=== PATIENT | female | born 1945 | race American Indian/Alaskan Native ===

== ENCOUNTER → 2018-06-02 | Outpatient (CLI) | payer MEDICARE | LOC: LAB 10:55 ==

== ENCOUNTER 2018-06-21 00:28 | Emergency (ER) | payer MEDICARE ==
[2018-06-21 00:39] VITALS: BMI 35.4
[2018-06-21] MEDS ORDERED: Albuterol-Ipratrop 3 mg / 0.5 (3 ml) UD IH STA (00:44)
--- NOTE | 2018-06-21 00:47 | ED PDOC ---
Arrival/HPI - General Time Seen by Provider: 06/21/18 00:37 Historian: Patient - History of Present Illness Narrative History of Present Illness (Text): 06/21/18 00:44 73 year old female, whose past medical history includes hypertension, diabetes, high cholesterol, and asthma, presents to the emergency department via EMS complaining of shortness of breath that began 4 hours ago. Patient reports symptoms is similar to her asthma. Patient was given 2 duonebs and 1 albuteral l treatment enroute to Emergency room. She reports relief after the treatments. Patient states she has been admitted in the past at another facility due to her asthma and notes that her current attack does not feel as bad as previous. She denies ever being intubated before. Patient denies any fever, chills, night sweats, chest pain, nausea, vomiting, diarrhea, urinary symptoms, back pain, neck pain, headache, dizziness, or any other complaints. PMD: Dr. Linn Time/Duration: Other (4 hours) Symptom Onset: Gradual Symptom Course: Unchanged Activities at Onset: Light Context: Home Past Medical History - Provider Review Nursing Documentation Reviewed: Yes - Cardiac Hx Cardiac Disorders: Yes Hx Hypertension: Yes Hx Pacemaker: No - Pulmonary Hx Respiratory Disorders: No - Neurological Hx Neurological Disorder: No - HEENT Hx HEENT Disorder: No - Renal Hx Renal Disorder: No - Endocrine/Metabolic Hx Endocrine Disorders: No - Hematological/Oncological Hx Blood Disorders: No - Integumentary Hx Dermatological Disorder: No - Musculoskeletal/Rheumatological Hx Musculoskeletal Disorders: No Hx Falls: No - Gastrointestinal Hx Gastrointestinal Disorders: Yes (HERNIORHAPPHY) - Genitourinary/Gynecological Hx Genitourinary Disorders: Yes (FREQUENCY,PARTIAL HYSTERECTOMY) - Psychiatric Hx Psychophysiologic Disorder: Yes Hx Depression: Yes Hx Emotional Abuse: No Hx Physical Abuse: No Hx Substance Use: No - Surgical History Hx Hysterectomy: Yes (PARTIAL) Hx Inguinal Hernia Repair: Yes - Anesthesia Hx Anesthesia Reactions: No Hx Malignant Hyperthermia: No - Suicidal Assessment Feels Threatened In Home Enviroment: No Family/Social History - Physician Review Nursing Documentation Reviewed: Yes Family/Social History: No Known Family HX Smoking Status: Never Smoked Hx Alcohol Use: No Hx Substance Use: No Hx Substance Use Treatment: No Allergies/Home Meds Allergies/Adverse Reactions: Allergies No Known Allergies Allergy (Verified 06/21/18 00:46) Home Medications: Home Meds Medication Instructions Recorded Confirmed Amlodipine/Valsartan [Exforge 5 1 tab PO DAILY 11/17/12 06/21/18 mg-160 mg] Aripiprazole [Abilify] 15 mg PO HS 11/17/12 06/21/18 Multivitamin 1 tab PO DAILY 11/17/12 06/21/18 Review of Systems - Physician Review All systems were reviewed & negative as marked: Yes - Review of Systems Constitutional: absent: Fevers, Night Sweats, Other (chills) Eyes: absent: Vision Changes ENT: absent: Hearing Changes Respiratory: SOB. absent: Sputum Cardiovascular: absent: Chest Pain Gastrointestinal: absent: Abdominal Pain, Stool Changes, Constipation, Diarrhea, Nausea, Vomiting, Hematochezia, Anorexia Genitourinary Female: absent: Dysuria, Frequency, Hematuria Musculoskeletal: absent: Arthralgias, Back Pain, Neck Pain Skin: absent: Rash Neurological: absent: Headache, Dizziness, Focal Weakness, Gait Changes Hemo/Lymphatic: absent: Adenopathy Psychiatric: absent: Anxiety Physical Exam Vital Signs Reviewed: Yes Temperature: Afebrile Blood Pressure: Normal Pulse: Regular Respiratory Rate: Normal Appearance: Positive for: Well-Appearing, Non-Toxic, Comfortable Pain Distress: None Mental Status: Positive for: Alert and Oriented X 3 - Systems Exam Head: Present: Atraumatic, Normocephalic Pupils: Present: PERRL Extroacular Muscles: Present: EOMI Conjunctiva: Present: Normal Ears: Present: Normal, NORMAL TM Mouth: Present: Moist Mucous Membranes Pharnyx: Present: Normal. No: ERYTHEMA, EXUDATE Nose (External): Present: Atraumatic Nose (Internal): Present: Normal Inspection, No Active Bleeding Neck: Present: Normal Range of Motion. No: Meningeal Signs, MIDLINE TENDERNESS Respiratory/Chest: Present: Wheezes (mild wheezing bilaterally). No: Respiratory Distress, Accessory Muscle Use, Rales, Retracting Cardiovascular: Present: Regular Rate and Rhythm, Normal S1, S2. No: Murmurs Abdomen: No: Tenderness, Distention, Peritoneal Signs Back: Present: Normal Inspection. No: CVA Tenderness, Midline Tenderness Upper Extremity: Present: Normal Inspection, NORMAL PULSES, Neurovascularly Intact, Capillary Refill < 2s. No: Cyanosis, Edema Lower Extremity: Present: Normal Inspection, NORMAL PULSES, Neurovascularly Intact, Capillary Refill < 2 s. No: Edema, CALF TENDERNESS Neurological: Present: GCS=15, CN II-XII Intact, Speech Normal Skin: Present: Warm, Dry, Normal Color. No: Rashes Psychiatric: Present: Alert, Oriented x 3, Normal Insight, Normal Concentration Medical Decision Making ED Course and Treatment: 06/21/18 00:45 Impression: 73 year old female presents complaining of shortness of breath that began 4 hours ago. She notes SOB feels exactly alike her previous asthma exacerbations. No fall or trauma. No chest pain. No leg swelling. No hx of blood clots or dvt. No venous stasis or hormone therapy. no fever, chills or night sweats. Differential Diagnosis included but are not limited to: Asthma Plan: -- EKG -- Labs -- Chest X-ray -- Duoneb, Solu-medrol -- Reassess and disposition Prior Visits: Notes and results from previous visits were reviewed. Progress Notes: EKG shows NSR at 84 BPM with no STEMI. Interpreted by me. 06/21/18 02:41 Pt in NAD, labs largely unremarkable: CMP slightly hemolyzed but largely unremarkable CXR unremarkable per my read Pt in NAD, s/p rx, lungs cta b/l and pt speaking in full sentences and ambulating well without issue. Clear for d/c home with return indications and f/u. Pt agreeable to plan. - Lab Interpretations I have reviewed the lab results: Yes - RAD Interpretation Insole Coverer: ED Physician - EKG Interpretation Interpreted by ED Physician: Yes Type: 12 lead EKG - Scribe Statement The provider has reviewed the documentation as recorded by the Consuelo Richardson Provider Scribe Attestation: All medical record entries made by the Consuelo were at my direction and personally dictated by me. I have reviewed the chart and agree that the record accurately reflects my personal performance of the history, physical exam, medical decision making, and the department course for this patient. I have also personally directed, reviewed, and agree with the discharge instructions and disposition. Disposition/Present on Arrival - Present on Arrival Any Indicators Present on Arrival: No History of DVT/PE: No History of Uncontrolled Diabetes: No Urinary Catheter: No History Surgical Site Infection Following: None - Disposition Have Diagnosis and Disposition been Completed?: Yes Diagnosis: Asthma exacerbation Disposition: HOME/ ROUTINE Disposition Time: 02:39 Patient Problems: Current Active Problems Problem Status Onset Asthma exacerbation Acute Condition: STABLE Discharge Instructions (ExitCare): Asthma, Adult (DC) Additional Instructions: JUSTINA ALAS, thank you for letting us take care of you today. Your provider was Rommel Funk and you were treated for RESPIRATORY DISTRESS. The emergency medical care you received today was directed at your acute symptoms. If you were prescribed any medication, please fill it and take as directed. It may take several days for your symptoms to resolve. Return to the Emergency Department if your symptoms worsen, do not improve, or if you have any other problems. Please contact your doctor or call one of the physicians/clinics you have been referred to that are listed on the Patient Visit Information form that is included in your discharge packet. Bring any paperwork you were given at dis charge with you along with any medications you are taking to your follow up visit. Our treatment cannot replace ongoing medical care by a primary care provider outside of the emergency department. Thank you for allowing the [facility] team to be part of your care today. If you had an X-Ray or CT scan: A Radiologist will review the ED reading if any change in treatment is needed we will contact you. If you had a blood, urine, or wound culture: It will take several days for the results, if any change in treatment is needed we will contact you. If you had an STI test: It will take 48 hours for the results. Please call after 1 week if you have not heard back. Prescriptions: Albuterol HFA [Ventolin HFA 90 mcg/actuation (8 g)] 1 puff IH Q4H PRN 90 Days #1 inhaler PRN Reason: Shortness Of Breath predniSONE [Prednisone] 40 mg PO DAILY 5 Days #10 tab Referrals: [facility] [Outside] - Follow up with primary [facility] [Outside] - Follow up with primary [facility] at [facility] [place]] - Follow up with primary Travis Linn MD [Family Provider] - Follow up with primary
[2018-06-21 00:58] VITALS: TEMP 97.9
[2018-06-21 01:10] LABS: BASO # 0.02 K/mm3 (0.0-2.0); BASO % 0.3 % (0.0-3.0); EOS # 0.2 (0.0-0.7); EOS % 2.1 % (1.5-5.0); HEMOGLOBIN 13.3 g/dL (12.0-16.0); LYMPH # 1.9 (1.2-3.4); LYMPH % 24.9 % (22.0-35.0); MEAN CELL VOLUME 87.4 fl (80.0-105.0); MEAN CORPUSCULAR HEMOGLOBIN 28.5 pg (25.0-35.0); MEAN CORPUSCULAR HGB CONC 32.6 g/dl (31.0-37.0); MEAN PLATELET VOLUME 10.5 fl (7.0-11.0); MONO # 0.6 (0.1-0.6); MONO % 8.2 % (1.0-6.0); RBC 4.67 10^6/uL (3.5-6.1); RED CELL DISTRIBUTION WIDTH 13.5 % (11.5-14.5); WHITE BLOOD COUNT 7.6 10^3/uL (4.5-11.0)
[2018-06-21 02:19] VITALS: BP 124/63; PULSE 90; RESP 16; O2SAT 98
[2018-06-21 02:27] LABS: ALB/GLOB RATIO 1.2 (1.1-1.8); ALBUMIN 4.6 g/dL (3.0-4.8); ALT/SGPT 20 U/L (7-56); AST/SGOT 76 U/L (14-36); BLOOD UREA NITROGEN 23 mg/dL (7-21); CALCIUM 9.4 mg/dL (8.4-10.5); GFR NON-AFRICAN AMERICAN 54; TROPONIN I 0.05 ng/mL
--- NOTE | 2018-06-21 10:11 | CARD ---
APPROVED REPORT Date of service: 06/21/2018 EKG Measurement Heart [id number] <Conclusion> Normal sinus rhythm Nonspecific T wave abnormality Abnormal ECG
--- NOTE | 2018-06-21 10:30 | RAD ---
Date of service: 06/21/2018 HISTORY: sob COMPARISON: Chest radio dated 01/27/2013. TECHNIQUE: Chest PA and lateral views FINDINGS: LUNGS: Stable chronic prominence of the bilateral interstitial markings with superimposed pulmonary vascular congestion not excluded. No focal consolidation or pleural effusion. PLEURA: No significant pleural effusion identified. No pneumothorax apparent. CARDIOVASCULAR: Aortic atherosclerotic calcifications. Cardiomediastinal silhouette within normal limits. OSSEOUS STRUCTURES: Unchanged. VISUALIZED UPPER ABDOMEN: Normal. OTHER FINDINGS: None. IMPRESSION: Stable chronic prominence of the bilateral interstitial markings with superimposed pulmonary vascular congestion not excluded. No focal consolidation or pleural effusion.
== END 2018-06-21 03:07 | disposition home or self-care (01) ==
LOC: ED 00:28
DX: J45.901 Unspecified asthma with (acute) exacerbation (principal); I10 Essential (primary) hypertension
CPT/HCPCS: 71046; 80053; 84484; 85025; 93005; 96374; 99284; J2930